=== PATIENT | male | born 1970 | race Caucasian/White ===

== ENCOUNTER → 2022-05-08 07:55 | Outpatient (BNVA) | payer OTHER, SELFPAY | PROVIDERS: PCP Internal Medicine; Visit Provider Student in an Organized Health Care Education/Training Program | DX: L40.59 Other psoriatic arthropathy (principal); L40.9 Psoriasis, unspecified; M17.0 Bilateral primary osteoarthritis of knee; Z79.899 Other long term (current) drug therapy | CPT/HCPCS: 99202 ==

== ENCOUNTER 2022-05-31 10:51 | Outpatient (REF) | payer OTHER, SELFPAY ==
--- NOTE | ~2022-05-31 | XR_ITS ---
EXAMINATION: XR KNEE, right CLINICAL INFORMATION: Pain in right knee COMPARISON: None TECHNIQUE: Patient was not able to stand. No AP view was therefore obtained. A lateral view of each knee and a sunrise view of each knee was obtained only. If clinically warranted patient to return for supine AP view of the knee. FINDINGS: There is marked joint narrowing of the patellofemoral joint with large marginal bone spurs of femur and tibia. The femoral tibial joints are likely narrowed as well. AP view would be helpful for follow-up. XR/XR knee RT 2V IMPRESSION: Marked degenerative change of the patellofemoral joints and likely femoral tibial joints.
--- NOTE | ~2022-05-31 | XR_ITS ---
EXAMINATION: XR KNEE, LEFT CLINICAL INFORMATION: Pain in left knee COMPARISON: None TECHNIQUE: Patient was not able to stand. No AP view was therefore obtained. A lateral view of each knee and a sunrise view of each knee was obtained only. If clinically warranted patient to return for supine AP view of the knee. FINDINGS: There is marked joint narrowing of the patellofemoral joint with large marginal bone spurs of femur and tibia. The femoral tibial joints are likely narrowed as well. AP view would be helpful for follow-up. XR/XR knee LT 2V IMPRESSION: Marked degenerative change of the patellofemoral joints and likely femoral tibial joints.
== END 2022-05-31 10:52 | disposition home or self-care (01) ==
LOC: HO.HOSX 10:51
PROVIDERS: Visit Provider Orthopaedic Surgery
DX: M17.0 Bilateral primary osteoarthritis of knee (principal); E11.9 Type 2 diabetes mellitus without complications; E66.01 Morbid (severe) obesity due to excess calories; Z68.42 Body mass index [BMI] 45.0-49.9, adult; L40.59 Other psoriatic arthropathy
CPT/HCPCS: 73560; 99202

== ENCOUNTER → 2022-06-05 09:40 | Outpatient (BNVA) | payer OTHER, SELFPAY | PROVIDERS: PCP Internal Medicine; Visit Provider Student in an Organized Health Care Education/Training Program | DX: L40.59 Other psoriatic arthropathy (principal); L40.9 Psoriasis, unspecified; M17.0 Bilateral primary osteoarthritis of knee; Z79.899 Other long term (current) drug therapy | CPT/HCPCS: 99212 ==

== ENCOUNTER 2023-07-03 15:49 | Outpatient (AMB) | payer OTHER, SELFPAY ==
--- NOTE | 2023-07-03 15:52 | MHC.OFFVIS ---
Intake Vital Signs 07/03/23 15:57 Height 6 ft BMI Reason not done Patient refused/unable BP 142/76 H Blood Pressure Location Rt brachial Position Sitting Pulse 111 H Pulse Source Pulse Oximeter Pulse Oximetry (%) 95 Comment pt in wheelchair, stated he weighs 315lbs Intake Visit Reasons: PSA Intake Note: Pt last seen on 06/05/22, presents today for follow up on PsA. Was on Humira and sulfasalazine on hold pending safety labs. C/o pain in hips and knees Disintegrator Feeder Required: No Accompanied by: Friend Allergies Penicillins Allergy (Unknown, Unverified 07/03/23 15:57) HIVES Medication List - Last Reconciled 07/03/23 by Angi Orellana MD adalimumab (Humira(CF) Pen) inject one - 40 mg/0.4 mL pen every 2 weeks subcut clobetasol 0.05% 1 appl topical BID 2 weeks duloxetine 20 mg PO DAILY furosemide 80 mg PO BID glipizide ER 5 mg PO DAILY metformin 500 mg PO DAILY metoclopramide HCl 10 mg PO QID omeprazole 20 mg PO DAILY quetiapine 200 mg PO DAILY tamsulosin 0.4 mg PO BEDTIME trazodone 50 mg PO BEDTIME [walker As directed] HPI HPI Comments History of Present Illness Details 52-year-old male with psoriatic arthritis returns for follow-up. Patient was last seen by me 05/2022. States that he has not been on the Humira for 1 year. States that he was admitted to the hospital multiple times and Humira was discontinued. He has not been on Humira or sulfasalazine. Continues to have significant bilateral hip and bilateral knee pain. Can barely walk, states that his right little finger is turning in, does not hurt. Having psoriasis patches behind both ears, on the umbilicus and left shoulder. Initial history: 51-year-old male with psoriasis and psoriatic arthritis diagnosed around 2019 comes for evaluation of psoriatic arthritis. Patient had been on Humira and takes sulfasalazine 4 times a day. He has not been able to get the Humira of for almost 1 year since he could not see a mesh man. He has severe pain in his hands, hips and knees. What is most bothersome is his knees. Pain is there all day, worse with walking and going up and down the stairs. He has bilateral finger stiffness, worse in the morning, takes about 1 hour to improve. He takes Tylenol which does not help. He also complains of bilateral hip pain. Patient mentions he was diagnosed with CHF he does not recall whether heart catheterization was done. He does not have any stents. [facility] Medical History Psoriasiform dermatitis Carpal tunnel syndrome Type 2 diabetes mellitus Hypertension IBS (irritable bowel syndrome) Psoriasis Psoriatic arthritis Osteoarthritis of both knees Family History Mother Osteoarthritis Social History Household Members Other:: lives alone Housing: Apartment Alcohol intake: former Patient Tobacco Use Status: Former Tobacco user Quit Date: Many years ago service: No Current occupational status: disabled Review of Systems Musc Reports deformity, Reports arthralgias and Reports joint swelling Skin/Breast Details: Psoriasis Behind both ears and on umbilicus Psych Reports abnormal sleep pattern Physical Exam Vital Signs: Last Vital Signs Pulse 111 H 07/03/23 15:57 BP 142/76 H 07/03/23 15:57 Pulse Ox 95 07/03/23 15:57 Const Other: Patient is unable to get up to the examination bed due to severe bilateral knee pain General: comfortable Nutritional Appearance: obese morbidly obese Orientation/consciousness: patient oriented x3 Limitations: ambulation with cane Resp Effort & Inspection: normal respiratory effort and able to speak in complete sentences Skin Other: Bilateral psoriatic patches behind both ears, psoriatic patch in the umbilicus, significant nail osteolysis and nail pitting both hands and feet Neuro General: patient oriented x3 Extrem Other: Contracture of right index finger, new contracture of right little finger, right wrist tenderness to palpation and pain with full extension. Bilateral knee warmth Results Reviewed Results Reviewed: RF, CCP negative from 2019 Labs 06/2023 CBC unremarkable except for mild normocytic anemia hemoglobin 12.3 Platelets 520 ESR 61 CRP 3.9 (<0.5) Hepatitis-B surface antigen/hepatitis-B core IgM/hepatitis C antibody/hepatitis A IgM all negative CMP unremarkable T spot pending HLA B27 pending IgG normal IgA 595 (70-400) IgM 87 Immunofixation pending Assessment & Plan Assessment & Plan (1) Polyarticular psoriatic arthritis: Code(s): L40.59 - Other psoriatic arthropathy Plan: 52-year-old male with psoriasis and psoriatic arthritis (diagnosed in 2019). He has osteolysis and nail pitting bilaterally. He has right index finger contracture. Patient was on Humira every 2 weeks and sulfasalazine 4 tabs daily. He had been off the Humira for almost 1 year as as he kept getting admitted to the hospital and Humira was not restarted. He is also off sulfasalazine. He has active disease with multiple tender joints as well as significantly elevated inflammatory markers. Will need to restart DMARDs. Will request new prior authorization for Humira. Will start Humira 1st, will hold off on restarting sulfasalazine as it requires frequent blood work and patient prefers not to do frequent blood work. Labs before next visit in 6 months (2) Bilateral primary osteoarthritis of knee: Code(s): M17.0 - Bilateral primary osteoarthritis of knee Plan: This seems to be his main limitation right now. He received intra-articular steroids and gel injections in the past with no relief. Bilateral knee x-rays show extensive osteoarthritic changes. He was evaluated by Orthopedic surgery and deemed not a surgical candidate for knee replacement. Today patient was agreeable for pain management evaluation. Referral placed (3) Psoriasis: Code(s): L40.9 - Psoriasis, unspecified Plan: Psoriatic patches today behind both ears and on her umbilicus, significant onycholysis and nail pitting. Will Hopefully improve once Humira gets approved Plan I spent 26 minutes reviewing patient's chart, evaluating patient, ordering diagnostic workup, counseling patient and documenting in the chart Orders: Orders Comprehensive Met. Panel 6 Months L40.50 - Arthropathic psoriasis, unspecified C Reactive Protein 6 Months L40.50 - Arthropathic psoriasis, unspecified Complete Blood Count Auto Diff 6 Months L40.50 - Arthropathic psoriasis, unspecified Erythrocyte Sedimentation Rate 6 Months L40.50 - Arthropathic psoriasis, unspecified Referrals Pain Management Referral G89.29 - Other chronic pain, M17.0 - Bilateral primary osteoarthritis of knee, M54.50 - Low back pain, unspecified Coding Level of Care Code Est Pt Level 4 (73036) Diagnoses Polyarticular psoriatic arthritis L40.59 Bilateral primary osteoarthritis of knee M17.0 Psoriasis L40.9
[2023-07-03 15:57] VITALS: BP 142/76; PULSE 111; O2SAT 95
== END 2023-07-03 16:20 | disposition home or self-care (01) ==
PROVIDERS: PCP Internal Medicine; Visit Provider Student in an Organized Health Care Education/Training Program
DX: L40.59 Other psoriatic arthropathy (principal); M17.0 Bilateral primary osteoarthritis of knee; L40.9 Psoriasis, unspecified
CPT/HCPCS: 99214

== ENCOUNTER → 2023-07-03 15:49 | Outpatient (BNVA) | payer OTHER, SELFPAY | PROVIDERS: PCP Internal Medicine; Visit Provider Student in an Organized Health Care Education/Training Program | DX: L40.59 Other psoriatic arthropathy (principal); L40.9 Psoriasis, unspecified; M17.0 Bilateral primary osteoarthritis of knee | CPT/HCPCS: 99212 ==

== ENCOUNTER 2023-07-22 09:20 | Outpatient (RCR) | payer OTHER, SELFPAY | END 2023-07-22 17:00 | disposition home or self-care (01) | LOC: HO.WCC 09:20 | PROVIDERS: PCP Internal Medicine; Visit Provider Physician Assistant | DX: Z09 Encounter for follow-up examination after completed treatment for conditions other than malignant neoplasm (principal); L30.9 Dermatitis, unspecified; I87.2 Venous insufficiency (chronic) (peripheral); E11.40 Type 2 diabetes mellitus with diabetic neuropathy, unspecified; I11.0 Hypertensive heart disease with heart failure; I50.9 Heart failure, unspecified; I25.2 Old myocardial infarction; Z87.891 Personal history of nicotine dependence; Z79.84 Long term (current) use of oral hypoglycemic drugs; Z99.3 Dependence on wheelchair; Z87.2 Personal history of diseases of the skin and subcutaneous tissue | CPT/HCPCS: 99212 ==

== ENCOUNTER 2023-07-23 10:00 | Outpatient (AMB) | payer OTHER, SELFPAY ==
--- NOTE | 2023-07-23 10:13 | A.OFFVIS_ITS ---
Intake Vital Signs 07/23/23 10:14 Height 6 ft Weight 315 lb BMI 42.7 BP 133/79 Blood Pressure Location Lt brachial Position Sitting Respiration 14 Pulse 97 Pulse Source Pulse Oximeter Pulse Oximetry (%) 97 Oxygen Delivery Method Room Air Intake Visit Reasons: Jose hip/knee OA/CONFIRMED Allergies Penicillins Allergy (Unknown, Verified 07/23/23 10:10) HIVES HPI HPI Comments History of Present Illness Details Amadou is a very pleasant 52 year old male who presents to the office today for evaluation and management of his chronic bilateral knee pain. Patient is accompanied by [facility] staff member who assists with care management. Patient requests staff member remain in the room for the visit. Patient reports he has been suffering with this pain for many years. He was evaluated by ortho in the past, had steroid injections and gel injections without relief. He was referred by rheum where he is currently being treated for psoriatic arthritis. Patient states both knees are nontender to palpation, pain is in the joints . Pain is worse with standing and walking. He is currently attending PT but it is not helping. He takes tylenol and gabapentin without relief. He also takes duloxetine daily. Pain today is rated as 8/10, constant, worse during the day. In terms of muscle damage condition is described as aching, stabbing, sharp. Pain is negatively impacting his enjoyment of life, general activity, recreational activities, relationships with people, sleep and walking. [facility] Medical History (Updated 07/23/23 @ 11:20 by Kiki Black, LUCIE, GENERAL DUTY NURSE) Psoriasiform dermatitis Carpal tunnel syndrome Type 2 diabetes mellitus Hypertension IBS (irritable bowel syndrome) Psoriasis Psoriatic arthritis Osteoarthritis of both knees Family History Mother Osteoarthritis Social History Household Members Other:: lives alone Housing: Apartment Alcohol intake: former Patient Tobacco Use Status: Former Tobacco user Quit Date: Many years ago service: No Current occupational status: disabled Review of Systems Const All systems reviewed & are unremarkable except as noted in HPI and below Physical Exam Vital Signs: Last Vital Signs Pulse 97 07/23/23 10:14 Resp 14 07/23/23 10:14 BP 133/79 07/23/23 10:14 Pulse Ox 97 07/23/23 10:14 Oxygen Delivery Method Room Air 07/23/23 10:14 BMI result Body Mass Index 42.7 General: awake, alert, oriented. Answers questions appropriately. Fully engaged in examination. Skin: warm, dry, intact HEENT: Normocephalic. Hearing intact. Cardiac: External chest normal in appearance. 3+BLE edema. Respiratory: No cough, audible wheezing or stridor. Abdomen: without gross distension. MS: No obvious swelling or deformities. Bilateral knees nontender to palpation Limited ROM bilateral knees Neurological: Oriented to person, place, time and situation. Thought process intact. utilizing wheelchair. Psychiatric: Appropriate mood and affect. Good judgment and insight. Assessment & Plan Assessment & Plan (1) Diabetes mellitus: Code(s): E11.9 - Type 2 diabetes mellitus without complications (2) Morbid obesity with body mass index (BMI) of 45.0 to 49.9 in adult: Code(s): E66.01 - Morbid (severe) obesity due to excess calories; Z68.42 - Body mass index [BMI] 45.0-49.9, adult (3) Right knee pain: Code(s): M25.561 - Pain in right knee (4) Left knee pain: Code(s): M25.562 - Pain in left knee (5) Osteoarthritis of both knees: Code(s): M17.0 - Bilateral primary osteoarthritis of knee Plan Amadou is a very pleasant 52 year old male who presented to the office today for evaluation and management of his chronic bilateral knee pain. Patient has failed conservative therapy including tylenol, prescription medications and PT. Will refer to weight management. Discussed options for treatment including diagnostic interventional testing, steroid injections, peripheral nerve stimulation with Sprint, RFA and more pe rmanent neuromodulation. Will schedule for bilateral diagnostic genicular nerve blocks with local anesthetic. If patient reports improvement in pain, function and mobility will plan to follow with bilateral genicular RFA. Patient presented with 3+ BLE edema, he was educated on dietary sodium restrictions and monitoring intake including reading food labels. Advised patient to follow up gregory with pcp/cardiology. C/W medications as prescribed. All questions and concerns have been answered and patient agrees with the plan. Follow up after injections and sooner if needed. Orders: Referrals Medical Weight Management Referral E66.01 - Morbid (severe) obesity due to excess calories, Z68.42 - Body mass index [BMI] 45.0-49.9, adult Coding Level of Care Code New Pt Level 4 (19207) Diagnoses Diabetes mellitus E11.9 Morbid obesity with body mass index (BMI) of 45.0 to 49.9 in adult E66.01; Z68.42 Right knee pain M25.561 Left knee pain M25.562 Osteoarthritis of both knees M17.0
[2023-07-23 10:14] VITALS: BP 133/79; PULSE 97; RESP 14; O2SAT 97; BMI 42.7
== END 2023-07-23 10:48 | disposition home or self-care (01) ==
PROVIDERS: PCP Internal Medicine; Referring Provider Student in an Organized Health Care Education/Training Program; Visit Provider Registered Nurse Emergency
DX: M17.0 Bilateral primary osteoarthritis of knee (principal); E11.9 Type 2 diabetes mellitus without complications; E66.01 Morbid (severe) obesity due to excess calories; Z68.42 Body mass index [BMI] 45.0-49.9, adult; M25.561 Pain in right knee; M25.562 Pain in left knee
CPT/HCPCS: 99204

== ENCOUNTER → 2023-07-23 10:00 | Outpatient (BNVA) | payer OTHER, SELFPAY | PROVIDERS: PCP Internal Medicine; Referring Provider Student in an Organized Health Care Education/Training Program; Visit Provider Registered Nurse Emergency | DX: M25.561 Pain in right knee (principal); M25.562 Pain in left knee; M17.0 Bilateral primary osteoarthritis of knee; E11.9 Type 2 diabetes mellitus without complications; E66.01 Morbid (severe) obesity due to excess calories; Z68.41 Body mass index [BMI] 40.0-44.9, adult | CPT/HCPCS: 99202 ==

== ENCOUNTER 2023-12-30 09:57 | Outpatient (AMB) | payer OTHER, SELFPAY ==
[2023-12-30 10:01] VITALS: BP 136/74; PULSE 75; O2SAT 95; BMI 40.4
--- NOTE | 2023-12-30 10:01 | MHC.OFFVIS ---
Vital Signs 12/30/23 10:01 Height 6 ft Weight 297 lb 9.985 oz BMI 40.4 BP 136/74 Blood Pressure Location Rt brachial Position Sitting Pulse 75 Pulse Source Pulse Oximeter Pulse Oximetry (%) 95 Oxygen Delivery Method Room Air Intake Visit Reasons: PsA Intake Note: Patient last seen 07/03/23 presents today for follow up and test results. States he is doing good on Humira; some pain in L hip Analytics Senior Manager Required: No Accompanied by: Other [facility] Will Allergies Penicillins Allergy (Unknown, Verified 12/30/23 10:29) HIVES Medication List - Last Reconciled 12/30/23 by Angi Orellana MD clobetasol 0.05% 1 appl topical BID 2 weeks duloxetine 20 mg PO DAILY furosemide 80 mg PO BID glipizide ER 5 mg PO DAILY Humira(CF) Pen (adalimumab) inject one - 40 mg/0.4 mL pen every 2 weeks subcut NS metformin 500 mg PO DAILY metoclopramide HCl 10 mg PO QID omeprazole 20 mg PO DAILY quetiapine 200 mg PO DAILY tamsulosin 0.4 mg PO BEDTIME trazodone 50 mg PO BEDTIME [walker As directed] HPI Comments Details: 53-year-old male with psoriatic arthritis returns for follow-up. On Humira 40 mg every other week. States that his skin has cleared up. His joints have been doing quite well except for left hip pain. He tries to move it as much as possible. States that he is only allowed 1 session of physical therapy per week which isn't enough. Has significant difficulty walking. Initial history: 51-year-old male with psoriasis and psoriatic arthritis diagnosed around 2018 comes for evaluation of psoriatic arthritis. Patient had been on Humira and takes sulfasalazine 4 times a day. He has not been able to get the Humira of for almost 1 year since he could not see a analytics analyst. He has severe pain in his hands, hips and knees. What is most bothersome is his knees. Pain is there all day, worse with walking and going up and down the stairs. He has bilateral finger stiffness, worse in the morning, takes about 1 hour to improve. He takes Tylenol which does not help. He also complains of bilateral hip pain. Patient mentions he was diagnosed with CHF he does not recall whether heart catheterization was done. He does not have any stents. [facility] Medical History Psoriasiform dermatitis Carpal tunnel syndrome Type 2 diabetes mellitus Hypertension IBS (irritable bowel syndrome) Psoriasis Psoriatic arthritis Osteoarthritis of both knees Family History Mother Osteoarthritis Social History Household Members Other:: lives alone Housing: Apartment Alcohol intake: former Patient Tobacco Use Status: Former Tobacco user Quit Date: Many years ago service: No Current occupational status: disabled Review of Systems Musc Reports deformity and Reports arthralgias Skin/Breast Denies rash Physical Exam Vital Signs: Last Vital Signs Pulse 75 12/30/23 10:01 BP 136/74 12/30/23 10:01 Pulse Ox 95 12/30/23 10:01 Oxygen Delivery Method Room Air 12/30/23 10:01 BMI result Body Mass Index 40.4 Const Other: Patient is unable to get up to the examination bed due to severe bilateral knee pain General: comfortable Nutritional Appearance: obese morbidly obese Orientation/consciousness: patient oriented x3 Limitations: ambulation with cane Resp Effort & Inspection: normal respiratory effort and able to speak in complete sentences Skin Other: Psoriasis patches have resolved Neuro General: patient oriented x3 Extrem Other: Contracture of right index finger, no active synovitis No knee warmth day Significantly limited range of motion of knees Results Reviewed Results Reviewed: RF, CCP negative from 2019 Labs 06/2023 CBC unremarkable except for mild normocytic anemia hemoglobin 12.3 Platelets 520 ESR 61 CRP 3.9 (<0.5) Hepatitis-B surface antigen/hepatitis-B core IgM/hepatitis C antibody/hepatitis A IgM all negative CMP unremarkable T spot negative HLA B27 pending IgG normal IgA 595 (70-400) IgM 87 Immunofixation pending Assessment & Plan Assessment & Plan (1) Polyarticular psoriatic arthritis: Comment: dx 2019. Osteolysis, nail pitting. Right index finger contracture Humira +SSZ Humira restarted 07/2023 effective Code(s): L40.59 - Other psoriatic arthropathy Category: Medical Plan: 53-year-old male with psoriasis and psoriatic arthritis who returns for follow-up. Doing dramatically better on Humira 40 mg every other week. Psoriasis rash has cleared up. There is no active synovitis on exam. Continues to have labs of degenerative arthritis Continue Humira 40 mg every other week. I do not think he needs to restart sulfasalazine at this point Labs before next visit in 6 months (2) Bilateral primary osteoarthritis of knee: Code(s): M17.0 - Bilateral primary osteoarthritis of knee Category: Medical Plan: This seems to be his main limitation right now. He received intra-articular steroids and gel injections in the past with no relief. Bilateral knee x-rays show extensive osteoarthritic changes. He was evaluated by Orthopedic surgery and deemed not a surgical candidate for knee replacement. (3) Psoriasis: Code(s): L40.9 - Psoriasis, unspecified Category: Medical Plan: As above Plan I spent 26 minutes reviewing patient's chart, evaluating patient, ordering diagnostic workup, counseling patient and documenting in the chart Orders: Orders Comprehensive Met. Panel 6 Months L40.59 - Other psoriatic arthropathy C Reactive Protein 6 Months L40.59 - Other psoriatic arthropathy Complete Blood Count Auto Diff 6 Months L40.59 - Other psoriatic arthropathy Erythrocyte Sedimentation Rate 6 Months L40.59 - Other psoriatic arthropathy Medications: Refilled Humira(CF) Pen (adalimumab) inject one - 40 mg/0.4 mL pen every 2 weeks subcut 2 ea 5RF NS
== END 2023-12-30 11:03 | disposition home or self-care (01) ==
LOC: HO.RHE 09:57
PROVIDERS: PCP Internal Medicine; Visit Provider Student in an Organized Health Care Education/Training Program
DX: L40.59 Other psoriatic arthropathy (principal); M17.0 Bilateral primary osteoarthritis of knee; L40.9 Psoriasis, unspecified
CPT/HCPCS: 99214

== ENCOUNTER → 2023-12-30 09:57 | Outpatient (BNVA) | payer OTHER, SELFPAY | PROVIDERS: PCP Internal Medicine; Visit Provider Student in an Organized Health Care Education/Training Program | DX: L40.59 Other psoriatic arthropathy (principal); M17.0 Bilateral primary osteoarthritis of knee; L40.9 Psoriasis, unspecified; Z79.899 Other long term (current) drug therapy | CPT/HCPCS: 99212 ==

== ENCOUNTER 2024-06-30 09:56 | Outpatient (AMB) | payer OTHER, SELFPAY ==
--- NOTE | 2024-06-30 10:25 | MHC.OFFVIS ---
Vital Signs 06/30/24 10:29 Height 6 ft Weight 336 lb 6.806 oz BMI 45.6 BP 122/80 Blood Pressure Location Lt brachial Position Sitting Pulse 91 Pulse Source Pulse Oximeter Pulse Oximetry (%) 93 Oxygen Delivery Method Room Air Intake Visit Reasons: PsA Intake Note: Patient presents for PsA. Allergies Penicillins Allergy (Unknown, Verified 06/30/24 10:32) HIVES Medication List - Last Reconciled 06/30/24 by Angi Orellana MD clobetasol 0.05% 1 appl topical BID 2 weeks duloxetine 20 mg PO DAILY furosemide 80 mg PO BID glipizide ER 5 mg PO DAILY Humira(CF) Pen (adalimumab) 40 mg (0.4 mL) subcut Q2W NS metformin 500 mg PO DAILY metoclopramide HCl 10 mg PO QID omeprazole 20 mg PO DAILY quetiapine 200 mg PO DAILY tamsulosin 0.4 mg PO BEDTIME trazodone 50 mg PO BEDTIME [walker As directed] HPI Comments Details: 53-year-old male with psoriatic arthritis returns for follow-up. On Humira 40 mg every other week. States that he continues to have psoriasis patches especially behind both knees intermittently on the dorsal aspect of his hands. States that his knuckles have been painful recently. States that his knees have been locking up especially at night. Continues to have chronic bilateral knee and hip pain due to known osteoarthritis. Initial history: 51-year-old male with psoriasis and psoriatic arthritis diagnosed around 2019 comes for evaluation of psoriatic arthritis. Patient had been on Humira and takes sulfasalazine 4 times a day. He has not been able to get the Humira of for almost 1 year since he could not see a residential coordinator. He has severe pain in his hands, hips and knees. What is most bothersome is his knees. Pain is there all day, worse with walking and going up and down the stairs. He has bilateral finger stiffness, worse in the morning, takes about 1 hour to improve. He takes Tylenol which does not help. He also complains of bilateral hip pain. Patient mentions he was diagnosed with CHF he does not recall whether heart catheterization was done. He does not have any stents. [facility], [facility] Medical History Psoriasiform dermatitis Carpal tunnel syndrome Type 2 diabetes mellitus Hypertension IBS (irritable bowel syndrome) Psoriasis Psoriatic arthritis Osteoarthritis of both knees Family History Mother Osteoarthritis Social History Household Members Other:: lives alone Housing: Apartment Alcohol intake: former Patient Tobacco Use Status: Former Tobacco user service: No Current occupational status: disabled Review of Systems Musc Reports deformity and Reports arthralgias Skin/Breast Reports rash Physical Exam Vital Signs: Last Vital Signs Pulse 91 06/30/24 10:29 BP 122/80 06/30/24 10:29 Pulse Ox 93 06/30/24 10:29 Oxygen Delivery Method Room Air 06/30/24 10:29 BMI result Body Mass Index 45.6 Const Other: Patient is unable to get up to the examination bed due to severe bilateral knee pain General: comfortable Nutritional Appearance: obese morbidly obese Orientation/consciousness: patient oriented x3 Limitations: ambulation with cane Resp Effort & Inspection: normal respiratory effort and able to speak in complete sentences Skin Other: Active psoriasis patches behind both knees Neuro General: patient oriented x3 Extrem Other: Contracture of right index finger, Right 2nd 3rd and 4th MCP tenderness Left 2nd 3rd and 4th MCP tenderness No knee warmth day Significantly limited range of motion of knees Results Reviewed Results Reviewed: RF, CCP negative from 2019 Labs 06/2023 CBC unremarkable except for mild normocytic anemia hemoglobin 12.3 Platelets 520 ESR 61 CRP 3.9 (<0.5) Hepatitis-B surface antigen/hepatitis-B core IgM/hepatitis C antibody/hepatitis A IgM all negative CMP unremarkable T spot negative HLA B27 pending IgG normal IgA 595 (70-400) IgM 87 Immunofixation pending Assessment & Plan Assessment & Plan (1) Polyarticular psoriatic arthritis: Comment: dx 2019. Osteolysis, nail pitting. Right index finger contracture Humira +SSZ Humira restarted 07/2023 Code(s): L40.59 - Other psoriatic arthropathy Category: Medical Plan: 53-year-old male with psoriasis and psoriatic arthritis who returns for follow-up. On Humira 40 mg every other week. Not doing well. Has active psoriasis patches behind both knees. Has multiple tender MCPs on exam. I will request authorization to advance his Humira to 40 mg weekly. Labs before next visit in 6 months (2) Bilateral primary osteoarthritis of knee: Code(s): M17.0 - Bilateral primary osteoarthritis of knee Category: Medical Plan: This seems to be his main limitation right now. He received intra-articular steroids and gel injections in the past with no relief. Bilateral knee x-rays show extensive osteoarthritic changes. He was evaluated by Orthopedic surgery and deemed not a surgical candidate for knee replacement. (3) Psoriasis: Code(s): L40.9 - Psoriasis, unspecified Category: Medical Plan: As above Plan I spent 26 minutes reviewing patient's chart, evaluating patient, ordering diagnostic workup, counseling patient and documenting in the chart Orders: Orders Comprehensive Met. Panel 6 Months L40.59 - Other psoriatic arthropathy Erythrocyte Sedimentation Rate 6 Months L40.59 - Other psoriatic arthropathy T Spot TB 6 Months Z11.7 - Encounter for testing for latent tuberculosis infection Complete Blood Count Auto Diff 6 Months L40.59 - Other psoriatic arthropathy C Reactive Protein 6 Months L40.59 - Other psoriatic arthropathy Hepatitis A,B,C Profile 6 Months Z11.59 - Encounter for screening for other viral diseases Coding Level of Care Code Est Pt Level 4 (92076) Complex EM visit Add On G2211 Diagnoses Polyarticular psoriatic arthritis L40.59 Bilateral primary osteoarthritis of knee M17.0 Psoriasis L40.9
[2024-06-30 10:29] VITALS: BP 122/80; PULSE 91; O2SAT 93; BMI 45.6
== END 2024-06-30 11:02 | disposition home or self-care (01) ==
PROVIDERS: PCP Internal Medicine; Visit Provider Student in an Organized Health Care Education/Training Program
DX: L40.59 Other psoriatic arthropathy (principal); M17.0 Bilateral primary osteoarthritis of knee; L40.9 Psoriasis, unspecified
CPT/HCPCS: 99214; G2211

== ENCOUNTER → 2024-06-30 09:56 | Outpatient (BNVA) | payer OTHER, SELFPAY | PROVIDERS: PCP Internal Medicine; Visit Provider Student in an Organized Health Care Education/Training Program | DX: M25.642 Stiffness of left hand, not elsewhere classified (principal); M25.641 Stiffness of right hand, not elsewhere classified; M17.0 Bilateral primary osteoarthritis of knee; L40.59 Other psoriatic arthropathy; Z79.899 Other long term (current) drug therapy | CPT/HCPCS: 99212 ==

== ENCOUNTER 2025-08-20 13:39 | Outpatient (AMB) | payer OTHER, SELFPAY ==
[2025-08-20 13:49] VITALS: BP 141/72; PULSE 94; RESP 16; O2SAT 95; BMI 31.7
--- NOTE | 2025-08-20 13:49 | MHC.OFFVIS ---
Vital Signs 08/20/25 13:49 Height 6 ft Weight 234 lb BMI 31.7 BP 141/72 H Blood Pressure Location Lt brachial Position Sitting Respiration 16 Pulse 94 Pulse Source Pulse Oximeter Pulse Oximetry (%) 95 Oxygen Delivery Method Room Air Intake Visit Reasons: BILATERAL OSTEOARTHRITIS OF KNEES Director Regulatory Agency Required: No Accompanied by: Self / Same As Patient Allergies Penicillins Allergy (Unknown, Verified 08/20/25 13:50) HIVES HPI Comments Details: History of Present Illness The patient is a 54 year old male presenting with widespread chronic pain, with a chief complaint of right shoulder pain. He also reports pain in his bilateral knees, hips, ankles, and right fingertips. The patient's right shoulder pain began without a specific injury and radiates down to his fingertips. The pain is exacerbated when he uses his right arm to assist in getting up and is severe enough to keep him awake all night, forcing him to sleep in a recliner. He has never had an x-ray or physical therapy for his shoulder. Regarding his bilateral knee pain, the patient has previously undergone physical therapy twice and was told that no further improvement could be made, as his legs are fixed in a flexed position. He received a prior injection in his knees that was ineffective, providing less than an hour of relief. He reports that a surgeon denied him knee surgery because of his inability to walk adequately. A nerve block procedure for his knees was previously considered but did not occur due to scheduling difficulties. The patient has a history of rheumatoid arthritis and has an upcoming appointment with a document clerk in September. He reports taking tramadol 50 mg and [id number] medications like Tylenol and ibuprofen, none of which provide adequate pain relief. His chronic pain and resultant insomnia have led to significant irritability and anger. For mobility, he uses an electric scooter. Pain Description - Location: The patient reports widespread pain, primarily in the right shoulder, bilateral hips, bilateral knees, and ankles. - Radiation: Pain radiates from the right shoulder down to the fingertips. - Onset: The shoulder pain started without a specific injury. - Severity and Impact: The pain is described as severe, keeps him up all night, and makes him feel like he's going crazy. - Exacerbating factors: The right shoulder pain worsens when using the arm to get up. - Functional Interference: Pain interferes with his ability to get up, sleep, and walk. Pain Management - Affect: The patient reports significant distress, stating the pain is driving me crazy. - He feels irritable, snaps at people, and feels he is about to give up due to unmanaged pain and lack of sleep. - Analgesia: The patient reports his current regimen of tramadol 50 mg and [id number] Tylenol or ibuprofen is ineffective. - A prior knee injection provided less than one hour of relief. - Activities of Daily Living: His pain is so severe it prevents him from sleeping in his bed, forcing him to use a recliner. - He relies on an electric scooter for mobility and finds it difficult to get up from a seated position. - Aberrant Drug-Related Behaviors: The patient repeatedly asks for pain medication but does not demonstrate other aberrant behaviors. - He was informed that this clinic does not prescribe pain medication. [facility] Medical History Psoriasiform dermatitis Carpal tunnel syndrome Type 2 diabetes mellitus Hypertension IBS (irritable bowel syndrome) Psoriasis Psoriatic arthritis Osteoarthritis of both knees Family History Mother Osteoarthritis Social History Household Members Other:: lives alone Housing: Apartment Alcohol intake: former Patient Tobacco Use Status: Former Tobacco user service: No Current occupational status: disabled Review of Systems Narrative Review of Systems - Musculoskeletal: Reports widespread pain affecting the right shoulder, bilateral knees, hips, and ankles. - Reports having arthritis throughout his body, specifically diagnosed as rheumatoid arthritis. - Reports his legs are stuck and cannot be fully straightened. - Neurological: Reports pain radiating from his right shoulder down to his fingertips. - Psychiatric: Reports chronic insomnia due to severe pain. - Reports feeling irritable and prone to anger when in pain and sleep-deprived. Physical Exam Exam Exam: Physical Exam - Right Shoulder: Examination reveals pain on forward flexion across the body. - Active range of motion is limited and painful with overhead elevation. - The patient is unable to reach behind his back due to pain. - Negative empty can test. Vital Signs: Last Vital Signs Pulse 94 08/20/25 13:49 Resp 16 08/20/25 13:49 BP 141/72 H 08/20/25 13:49 Pulse Ox 95 08/20/25 13:49 Oxygen Delivery Method Room Air 08/20/25 13:49 BMI result Body Mass Index 31.7 Assessment & Plan Assessment & Plan (1) Right shoulder pain: Code(s): M25.511 - Pain in right shoulder Category: Medical (2) Bilateral primary osteoarthritis of knee: Code(s): M17.0 - Bilateral primary osteoarthritis of knee Category: Medical (3) Chronic low back pain: Code(s): M54.50 - Low back pain, unspecified; G89.29 - Other chronic pain Category: Medical (4) Chronic pain syndrome: Code(s): G89.4 - Chronic pain syndrome Category: Medical Plan Plan For the patient's right shoulder pain, an x-ray will be ordered to be completed at [place]. A referral for physical therapy for the right shoulder will also be placed. The patient was informed that if physical therapy is not effective, an injection into the shoulder will be considered as the next step. Regarding the bilateral knee pain, the option to proceed with a genicular nerve block, and subsequently a radiofrequency ablation if the block is successful, was revisited. This will be considered after addressing the more acute shoulder issue. The patient was advised that this clinic provides interventional pain procedures and does not manage oral pain medications. He was instructed to discuss management of his medications, including the ineffective tramadol, with his primary care provider. The patient was encouraged to keep his upcoming rheumatology appointment to address his underlying rheumatoid arthritis. It was clarified that he would need to use his insurance-provided transportation for appointments, as he does not meet the criteria for home-based physical therapy. The patient will follow up after physical therapy to reassess and consider further interventions. Patient was informed and verbally consented to the use of an ambient scribe for clinic note documentation during this visit. Discussion Notes I discussed with the patient that we would begin by addressing his right shoulder pain, which he identified as his most bothersome issue. I recommended an X-ray of the right shoulder and a course of physical therapy. I explained that if these conservative measures do not provide adequate relief, we would then consider an injection. I clarified that our clinic specializes in interventional pain management and does not prescribe pain medications, and that he should follow up with his primary care provider for medication management. We revisited the prior plan for his bilateral knee pain, discussing genicular nerve blocks with possible radiofrequency ablation as a future option, which he was agreeable to trying. The patient will follow up after completing his shoulder physical therapy. Patient Instructions - An order for an X-ray of your right shoulder will be sent to [facility]. Please go there to have this done. - We are referring you to physical therapy for your right shoulder. - Please use your insurance transportation service (PT-1) to get to your physical therapy appointments. - If physical therapy does not help your shoulder pain, we can try an injection at your follow-up visit. - This clinic does not prescribe pain pills. You will need to talk to your primary care doctor about managing your pain medications, including the tramadol that is not working for you. - Make sure to keep your appointment with the document clerk in September for your arthritis. - After we address your shoulder, we can try a nerve block procedure to help with your knee pain. Orders: Orders XR shoulder RT min 2V 08/20/25 M25.511 - Pain in right shoulder PT Evaluation and Treatment 08/20/25 M25.511 - Pain in right shoulder Coding Level of Care Code Est Pt Level 3 (69634) Add On Problem Visit Only Diagnoses Right shoulder pain M25.511 Bilateral primary osteoarthritis of knee M17.0 Chronic low back pain M54.50; G89.29 Chronic pain syndrome G89.4
--- OUTSIDE RECORDS SUMMARY | 2025-08-20 19:08 | XMS_ITS | Data Portability ---
Author Organization [facility] [employer] [facility], Main Office Address [address] [place] [address] Care Team Providers Care Kiln Door Repairer Name Role Phone PAM BAHTT - 2ND FLOOR OTHER MEHDI JOHNSON Primary Care Provider [phone] TEN UNDERWOOD OTHER Assessment Encounter Date Assessment Date Assessment LastModified by Organization Details LastModified Time 01/07/2023 01/07/2023 Pt. seen, evaluated, discussed with Kay Woods NP. Agree with assessment and plan. [email or web address] Not available 01/07/2023 10:45:15 02/07/2023 02/07/2023 1 hr. spent coordinating and completing discharge. [email or web address] Not available 02/07/2023 14:08:59 Plan of Treatment Reminders Order Date Submit Date Provider Last Modified By Organization Details Last Modified Time Details Appointments None record ed. Lab None record ed. Referral None record ed. Procedures None record ed. Surgeries None record ed. Imaging None record ed. Medication Orders None record ed. Patient TargetsNo targets recorded. Patient InstructionsNo instructions recorded. Reason for Referral None Reported. Problems Name Problem SNOMED Code Status Onset Date Resolution Date Notes Provider Name and Address Organization Details Recorded Time Pain of bilateral knee regions 7982451327492 02 Active 2022 ARJUN BEE PA-C [address] [facility], [address], [place], [address], [facility] 3 21:17:05 Gastropares is due to type 2 diabetes mellitus 117320963 Active 2022 ARJUN BEE PA-C [address], [place], [address], [facility] 3 21:19:45 Peripheral neuropathy due to type 2 diabetes mellitus 7547185685669 Active 2022 DONTRELL TAN-C [address], [address], [place], [address], [facility] 3 21:20:15 Gastroesoph ageal reflux disease without esophagitis 105955559 Active 2022 DONTRELL TAN-C [address], [address], [place], [address], [facility] 3 21:20:23 Chronic diastolic heart failure 368081323 Active 2022 DONTRELL TAN-C [address], [address], [place], [address], [facility] 3 21:20:33 Dyslipidemi a 903192946 Active 2022 DONTRELL TAN-C [address], [address], [place], [address], [facility] 3 21:20:40 Essential hypertensio n 93721211 Active 2022 DONTRELL TAN-C [address], [address], [place], [address], [facility] 3 21:20:49 Insomnia co-occurren t and due to medical condition 1338173128198 5 Active 2022 DONTRELL TAN-C [address], [address], [place], [address], [facility] 3 21:21:00 Atrial tachycardia 876550345 Active 2022 ARJUN BEE PA-C [address], [address], [place], [address], [facility] 3 21:21:08 Chronic anemia 718968686 Active 2022 ARJUN BEE PA-C [address], [address], [place], [address], [facility] 3 21:21:16 Thrombocyto sis 8139710 Active 2022 ARJUN BEE PA-C [address], [address], [place], [address], [facility] 3 21:21:24 Chronic osteoarthri tis 58550298 Active 2022 ARJUN BEE PA-C [address], [address], [place], [address], [facility] 3 21:21:38 Morbid obesity 997934150 Active 2022 ARJUN BEE PA-C [address], [address], [place], [address], [facility] 3 21:22:49 Benign prostatic hyperplasia with outflow obstruction 471152180 Active 2022 ARJUN BEE PA-C [address], [address], [place], [address], [facility] 3 21:23:08 Irritable bowel syndrome characteriz ed by constipatio n 328687790 Active [address], [place], [address], [facility] 3 21:23:30 Obstructive sleep apnea syndrome 95652382 Active 2022 ARJUN BEE PA-C [address], [address], [place], [address], [facility] 3 21:24:57 Psoriatic arthritis 125864155 Active 2022 ARJUN BEE PA-C [address], [address], [place], [address], [facility] 3 21:25:10 Cobalamin deficiency 206977628 Active 2022 ARJUN BEE PA-C [address], [address], [place], [address], [facility] 3 21:25:25 Edema of lower extremity 915589899 Active 2022 ARJUN BEE PA-C [address], [address], [place], [address], [facility] 3 21:27:24 Cough 03494691 Active 2022 ARJUN BEE DONTRELL-C [address], [address], [place], [address], [facility] 3 21:27:30 Hypophospha temia 1179832 Active 2022 DONTRELL TAN-C [address], [address], [place], [address], [facility] 3 21:27:51 Hypokalemia 49122816 Active 2022 DONTRELL TAN-C [address], [address], [place], [address], [facility] 3 21:31:07 Hypomagnese jorge 318013607 Active 2022 DONTRELL TAN-C [address], [address], [place], [address], [facility] 3 21:32:19 Bipolar II disorder 79864647 Active 2022 ARJUN BEE DONTRELL-C [address], [address], [place], [address], [facility] 3 21:32:33 Recurrent falls 375029515 Active 2022 DONTRELL TAN-C [address], [address], [place], [address], [facility] 3 21:34:08 Functional urinary incontinenc e 706083187 Active 2022 DONTRELL TAN-C [address], [address], [place], [address], [facility] 3 21:34:30 Functional fecal incontinenc e 080434363 Active 2022 ARJUN BEE PA-C [address], [address], [place], [address], [facility] 3 21:34:40 Candidiasis of skin 58626971 Active 2022 DONTRELL TAN-C [address], [address], [place], [address], [place] [facility] 3 19:54:43 Psoriasis 4623880 Active 2022 FELISA COLMENARES NP [address] [facility], [address], [place], [address], [facility] [employer] 3 10:10:34 Abdominal pain 07246704 Active 2022 MARLEN CARLISLE [address], [address], [place], [address], [facility] 3 09:44:40 Anemia 031305146 Active 2022 FELISA COLMENARES NP [address] [facility], [address], [place], [address], [facility] [employer] [facility] 3 10:38:28 Problem Notes None recorded. Medical Equipment None Reported. Allergies Allergen ID Allergen Name Allergen Category Reaction Reaction Severity Criticality Documentation Date Start Date Code Code System Note Provider Name and Address Organization Details Recorded Time 56689 Product containin g penicilli n (product) medicatio n hives Not available Not available 11/07/2022 82501 8001 SNOMED CAN TAKE CTX ARJUN BEE PA-C [address] [facility], [address], [place], [address], [facility] 3 13:52:37 Medications Name Sig Start Date Stop Date Status Note LastModified by Organization Details LastModified Time Guaiatussin AC 10 mg-100 mg/5 mL oral liquid Take 10 mL every day by oral route at bedtime for 7 days. 023 active Not Available Not Available Not Avai lable Vitals Date Recorded Body height Body temperature Heart rate Respiratory rate Oxygen saturation Systolic And Diastolic Provider Name and Address Organization Details Last Updated DateTime 3 182.88 cm 97 [degF] 68 /min 18 /min 96 % 130/68 mm[Hg] MARLEN CARLISLE [address] [facility], [address], [place], [address], [facility] 3 09:15:04 Date Recorded Body height Body temperature Heart rate Oxygen saturation Systolic And Diastolic Provider Name and Address Organization Details Last Updated DateTime 3 182.88 cm 97.9 [degF] 70 /min 96 % 134/66 mm[Hg] Katina Olmos MD [address] [facility], [address], [place], [address], [facility] 3 07:25:14 Date Recorded Body height Heart rate Respiratory rate Body temperature Oxygen saturation Systolic And Diastolic Provider Name and Address Organization Details Last Updated DateTime 3 182.88 cm 79 /min 18 /min 97.2 [degF] 97 % 126/76 mm[Hg] FELISA COLMENARES NP [address] [facility], [address], [place], [address], [facility] 3 10:07:56 Date Recorded Body height Heart rate Respiratory rate Body temperature Oxygen saturation Systolic And Diastolic Provider Name and Address Organization Details Last Updated DateTime 3 182.88 cm 89 /min 18 /min 97.3 [degF] 97 % 134/78 mm[Hg] FELISA COLMENARES NP [address] [facility], [address], [place], [address], [facility] 3 08:25:52 Date Recorded Body height Heart rate Respiratory rate Body temperature Oxygen saturation Systolic And Diastolic Provider Name and Address Organization Details Last Updated DateTime 3 182.88 cm 80 /min 18 /min 97.2 [degF] 97 % 132/76 mm[Hg] FELISA COLMENARES NP [address] [facility], [address], [place], [address], [facility] 3 13:13:02 Social History Question Answer Notes LastModified by Organizat ion Details LastModified Time Tobacco Smoking Status Former Smoker ARJUN BEE PA-C [address] [facility], [address], [place], [address], [facility] 11/08/2022 19:20:19 Do You Have An Advance Directive? Yes Full Code; All Interventions [email or web address] Information not available 11/08/2022 What Is Your Code Status? Full Code [email or web address] Information not available 11/08/2022 Legal Guardian? No [email or web address] Information not available 11/08/2022 Do You Have A Medical Power Of Steam Fitter Helper? Yes Valid Copy In PICC, Not Invoked [email or web address] Information not available 11/08/2022 What Was The Date Of Your Most Recent Tobacco Screening? 11/07/2022 [email or web address] Information not available 11/08/2022 Do You Have An Out Of Hospital DNR? No [email or web address] Information not available 11/08/2022 Has Tobacco Cessation Counseling Been Provided? No N/A [email or web address] Information not available 11/08/2022 Sex: Unknown Functional Status Question Answer Note LastModified by Organizat ion Details LastModified Time Do you use any illicit or recreational drugs? No [email or web address] Information not available 11/08/2022 Do you or have you ever used any other forms of tobacco or nicotine? No [email or web address] Information not available 11/08/2022 What is your level of alcohol consumption? Occasional [email or web address] Information not available 11/08/2022 Mental Status None recorded. Family History Relationship Description Onset Age of this Age Resolved Age Notes LastModified by Organization Details LastModified Time Unspecified Relation Essential hypertension [email or web address] Not available 09/2022 13:54:48 Unspecified Relation Coronary arterioscler osis [email or web address] Not available 2022 13:55:02 Medical History No medical history recorded. Immunizations Vaccine Type Date Status Note Provider Nam e and Address Organization Details Recorded Time Influenza, split virus, quadrivalent, preservative 2 completed ARJUN BEE PA-C [address] [place] [address], [facility] [address], [place], [address], [facility] 11/07/2022 12:59:44 Tdap 1 completed MIKE TAN [facility], [address], [place], [address], [facility] 11/07/2022 12:59:54 pneumococcal polysaccharide PPV23 1 completed ARJUN BEE PA-C [address] [place] [address], [address], [place], [address], [facility] 11/07/2022 13:00:09 COVID-19, mRNA, LNP-S, bivalent, PF, 50 mcg/0.5 mL or 25mcg/0.25 mL dose 1 completed MIKE TAN [facility], [address], [place], [address], [facility] 11/07/2022 13:00:22 COVID-19, mRNA, LNP-S, bivalent, PF, 50 mcg/0.5 mL or 25mcg/0.25 mL dose 1 completed ARJUN BEE PA-C [address] [facility], [address], [place], [address], [facility] 11/07/2022 13:00:25 Past Encounters Encounter ID Performer Location Encounter Start Date Encounter Closed Date Diagnosis/Indication Diagnosis SNOMED-CT Code Diagnosis ICD10 Code Diagnosis IMO Codes Diagnosis Note [id number] ARJUN BEE PA-C [facility] [address] [address] 11/07/2022 12:57:54 11/09/2022 16:13:36 Muscle weakness 13769944 M62.81 PT/OT-enco urage participat ion Cough 71355361 R05.9 has meds availablel ivet exam benignno indication for CXRConside r inhaler due to hx tobacco use d/o-would start with LAMA and prn SABAFollow clinically ?MAURO cough Chronic osteoarthritis 56356615 M19.90 prn APAP-consi mundo scheduling Continue diclofenac gelPT/OTNe eds weight loss before TKAs can be considered Might benefit from physiatry consult if available Recurrent falls 46514940 2 R29.6 PT/OT Psoriatic arthritis 1563 05149 L40.50 no further data about this - listed in historical documents Peripheral neuropathy due to type 2 diabetes mellitus 4552994768 107 E11.42 fix metformin dose from 750 to 1500 mg po daily and move to prior to breakfastO n MAURO-I for renal protection Monitor sugars and adjust meds prnContinu e Cymbalta and gabapentin Thrombocytosis 5915516 D 75.839 Follow CBC - chronic per hospital records Chronic di astolic heart failure 060049668 I50.32 compensate dUpdate Mg and TSH if not recently doneFollow divalents and renal function Chronic anemia 974292910 D64.9 Follow CBC Bipolar II disorder 8322 5003 F31.81 d/c hs Wellbutrin - pt only takes once daily-ok despite typically being a twice-terry y med - pt on this way at [facility] appears to be for mood stabilizat ion +/- adjunctive management of depression with Cymbalta and Wellbutrin -SNRI + DNI could exacerbate dx atrial tachconsid er psych consult Benign pro static hyperplasia with outflow obstruction 770060249 N40.1 since resolvedf/ u prn Atrial tachycardia 26322 6006 I47.1 rate-contr olled on Toprolsee above note re: potential effect of SNRI/DNI combo Cobalamin deficiency 190 548158 E53.8 Anemia overall improved from priorConsi mundo updating B12 level if not recently done Dyslipidemia 802923744 E 78.5 fenofibrat emay need to update lipid panel if extended stay Edema of l ower extremity 205500923 R60.0 not present on examcontin ue Lasixgabap entin can cause edema - consider change to pregaba if needed Essential hypertension 77305033 I10 monitor BPs and adjust meds prn Functional fecal incontinence 037485116 R15.9 Consider toileting scheduleEn courage independen ce with ADLs Functional urinary incontinence 567464005 R39.81 Consider toileting scheduleEn courage independen ce with ADLs Gastroesop hageal reflux disease without esophagitis 047929087 K21.9 On bid PPI-consid er trial reduction to once daily Gastropare sis due to type 2 diabetes mellitus 882428922 E11.43 Reglan-mon itor for EPSsee DM2 with neuropathy above Hypokalemia 24855734 E87 .6 monitor divalents Hypomagnesemia 708838716 E83.42 update level if not recently done Hypophosphatemia 6705047 E83.39 update level if not recently done Insomnia c o-occurrent and due to medical condition 8081840911 9105 G47.01 Trazodone Irritable bowel syndrome characterized by constipation 670581832 K58.1 f/u prn Morbid obesity 497874152 E66.01 consider weight loss plan, +/- including bariatric surg consult Obstructiv e sleep apnea syndrome 36079407 G47.33 not on CPAPconsid er PSG - may be able to get this done here Pain of bi lateral knee regions 2317243884 55891 M25.561 and in Lsee OA above Candidiasis of skin 4988 3006 B37.2 ok to continue Diflucan and Seroquel despite increased risk of QT prolongati on-multipl e prior very normal QTcs and Seroquel dose is low [id number] [facility] [address] 11/13/2022 11:17:36 11/15/2022 14:13:24 Muscle weakness 95015687 M62.81 see HPIPT OT eval and treatconti nue supportive caremonito r level of need with goal of finding appropriat e housing in community Chronic osteoarthritis 91493281 M15.0 generalize d OAmonitor for sx reliefavoi d opioids as ablephysia try eval prn Recurrent falls 84562807 2 R29.6 see abovethera py to assessmoni tor fall risk Psoriatic arthritis 1563 45962 L40.50 added to PMHrheumat ology eval prn Peripheral neuropathy due to type 2 diabetes mellitus 9718352733 107 E11.42 patient maintained on gabapentin and cymbaltamo nitor for sx reliefenco urage diabetic diet Thrombocytosis 2109831 D 75.838 carrying dxmonitor pltheme eval prn Chronic di astolic heart failure 137675713 I50.32 lasix 80 mg qdmonitor respirator y and fluid status Chronic anemia 515248551 D50.8 monitor cbciron studies prn Bipolar II disorder 8322 5003 F31.81 carrying dxcontinue current medscurren tly appears stablepsyc h to eval Cobalamin deficiency 190 357351 E53.8 monitor cbcb12 level prn Dyslipidemia 615774884 E 78.2 continue current medlipid panel after patient stable at facility Essential hypertension 79042929 I10 currently wnrmonitor bp and need to titrate meds Functional fecal incontinence 421016598 R15.9 carrying dxmonitor for behaviorsG I eval prn Gastroesop hageal reflux disease without esophagitis 848168764 K21.9 omeprazole 20 mg bidmonitor ability to wean and for sx relief Gastropare sis due to type 2 diabetes mellitus 869664550 E11.43 maintained on reglanmoni tor for effect Hypokalemia 46319535 E87 .6 monitor lytes on lasix Insomnia c o-occurrent and due to medical condition 7721584179 9105 G47.01 monitor need to titrate trazadone Morbid obesity 732050684 E66.01 dietary to followenco urage diabetic diet Obstructiv e sleep apnea syndrome 33202561 G47.33 consider sleep study and Cpap [id number] FELISA COLMENARES NP [facility] [address] [place] [address] 12/19/2022 08:06:36 12/26/2022 09:56:10 Psoriasis 5488375 L40.9 umbilicus, lower abdomen, posterior ears.Uncle ar if also with fungal component on abdomen, but just completed 4 wks of diflucan.A dd topical steroid - triamcinol one 0.1% bid, use sparingly, rub in well, x 3 wks.May consider referral to derm if problemati c Muscle weakness 90010860 M62.81 With hx. of recurrent fallsPT/OT prnUnclear if will be LTC or return to community Psoriatic arthritis 1563 37150 L40.50 no further data about this - listed in historical documentsn ow with active dermatitis May need to refer to derm for mgmt Peripheral neuropathy due to type 2 diabetes mellitus 4908845161 107 E11.42 Currently on:metform in XR 1500 mg q dinnerglip izide Er 5 mg dailyDapag liflozin 5 mg dailylispr o SSI bid Plan -change diet to carb control/di abetic - 20 lb weight gain so far while here, refer to dieticiand /c SSI and bid BS - change to BS BID once a week and prnCheck CBC, CMP, A1C x 1 Continue enalapril 5 mg daily for renal protection Continue Cymbalta and gabapentin for neuropathi c pain mgmt Thrombocytosis 2946087 D 75.839 Follow CBC - chronic per hospital recordsche ck CBC x 1 Chronic di astolic heart failure 637191856 I50.32 appears compensate d at present, but noted to have weight gain and ? increasing BLE edemaCheck CMP, Mg, and TSH [id number] VS and weights weekly, s/s decompensa tionContin ue:Lasix 80 mg daily - may need to consider increaseen alapril 5 mg dailyTopro l on admit med list, but not seen on active NOV, will add ER 25 mg daily Chronic anemia 436622355 D64.9 Check CBC x 1 Bipolar II disorder 8322 5003 F31.81 Currently on:Wellbut rin SR 150 mg dailymelat onin 3 mg q HSSeroquel 150 mg q HStrazodon e 50 mg q HScymbalta 20 mg dailyMonit or mood, behaviorsP sych eval prn -SNRI + DNI could exacerbate dx atrial tach - monitor Atrial tachycardia 13864 6006 I47.1 Toprol ER 25 mg daily on admission med list, but does not appear on current med list in [facility] - will startMonit or VSsee above note re: potential effect of SNRI/DNI combo Cobalamin deficiency 190 999601 E53.8 Anemia overall improved from priorCheck B 12 x 1 Dyslipidemia 612639238 E 78.5 fenofibrat e 145 mg dailyCMP, lipid panel x 1 Edema of l ower extremity 538903388 R60.0 +2 BLE, spending most of timecontin ue Lasix 80 mg daily - may need to consider increaseCh chantal CMP x 1gabapenti n can cause edema - consider change to pregaba if neededcan consider sup hosemonito r for now Essential hypertension 45198368 I10 Running on the higher side of nl.Current ly on:lasix 80 mg daily - may need to consider dose increase, at least temporaril yenalapril 5 mg dailyPer admit note, toprol XL 25 mg daily listed as active med, but not seen on current med list in [facility] - will addCheck labs x 1Monitor VS and weights weeklyadju st meds prn Gastroesop hageal reflux disease without esophagitis 057771415 K21.9 On omeprazole 20 mg bid - will trial dose reduction, reduce to daily and monitor sx. Gastropare sis due to type 2 diabetes mellitus 753814605 E11.43 Reglan prn-monito r use, s/s EPSsee DM2 with neuropathy above Morbid obesity 373179938 E66.01 Up 20 lbsChange diet to carb controlDie tician evalConsid er increase in lasix due to increasing edemaweigh ts q wk for now Obstructiv e sleep apnea syndrome 04466228 G47.33 not on CPAPconsid er PSG - may be able to get this done here [id number] FELISA COLMENARES NP [facility] [address] 12/26/2022 10:52:15 12/28/2022 11:56:34 Cough 59821612 R05.9 mucinex 2 tabs q12 for 5 daysmonito r for worsening coughconsi mundo CXR, abx., updrafts/i nhalers for worsening sx.encoura ged to increase fluid intake and activity FELISA COLMENARES NP [facility] [address] [address] 12/31/2022 10:38:52 01/02/2023 10:56:44 Cough 28635573 R05.9 guaifenesi n w/codeine 100mg/10 mg give 10 ml at hs for 7days.albu terol neb tx every 4 hours x's 7 days while awake.Flon ase 2 prays to each nostril daily for 7daysmonit or for worsening coughconsi mundo CXR, abx. worsening sx.encoura ged to increase fluid intake and activity [id number] MARLEN CARLISLE [facility] [address] 01/07/2023 09:09:20 01/09/2023 16:54:12 Cough 77299417 R05.9 01/07 reports improvemen t.guaifene sin w/codeine 100mg/10 mg give 10 ml at hs for 7days. completeda lbuterol neb tx every 4 hours x's 7 days while awake. completedF lonase 2 prays to each nostril daily for 7days. completedm onitor for worsening resp. sx.conside r CXR, abx. worsening sx.encoura ged to increase fluid intake and activity Abdominal pain R10.11 states intermitte nt pain that started on saturday.Hx of gastropare sis+ RUQ tenderness . no reboundChe ck cbc, bmp, LFT, amylase and lipasemoni tor VS, GI sx. closely for change/wor seningCons ider KUB and or abd. US if sx. persistTo ER if acute [id number] Katina Olmos MD [address] [address] 01/11/2023 07:24:46 01/16/2023 09:48:37 Asthenia 19482227 R53.1 PT/OTwill monitor and support as needed Gastropare sis due to type 2 diabetes mellitus 144560954 E11.43 Novolog per sliding scalemetfo rmin ER 1500 mg at hsglipizid e ER 5 mg dailydapag liflozin 5 mg dailymetoc lopramide 10 mg prn bid for gastropare siswill monitor Essential hypertension 42351880 I10 metoprolol ER 25 mg dailyenala pril 5 mg dailyfuros emide 80 mg dailywill monitor Gastroesop hageal reflux disease without esophagitis 342682686 K21.9 omeprazole 20 mg dailywill monitor Chronic pain 89277073 G8 9.29 with mod to severe OA bilat knees:PT/O TAPAP 650 mg q4h prndiclofe nac gel to knees qidgabapen tin 600 mg at hsduloxeti ne 20 mg dailywill monitor Mixed anxi ety and depressive disorder 676099263 F41.8 duloxetine 20 mg dailyqueti apine 150 mg at hstrazodon e 50 mg at hswill monitor [id number] FELISA COLMENARES NP [address] [address] 01/16/2023 10:06:16 01/21/2023 12:02:01 Asthenia 89646080 R53.1 PT/OT, making gainswill monitor and support as needed Gastropare sis due to type 2 diabetes mellitus 754084036 E11.43 metoclopra mide 10 mg prn bid for gastropare siswill monitor Gastroesop hageal reflux disease without esophagitis 674600031 K21.9 continue omeprazole 20 mg dailymonit or GI sx. Abdominal pain 15251914 R10.11 unclear etiology, duration about a week.Has hx. of GERD, gastropare sis, IBS-C, hepatic steatosis, small umbilical hernia, shady....P ain limited to upper abd. area, pain vague. Stool on the softer/loo se side, no N/V, taking po.Clinica lly non toxicVSSLa bs stable except lipase 81, H/H with slow drop Plan -Check KUB x 1, consider abd. US if sx. persistAdd ed prn imodium per pt. request -- 2 mg qid prn for c/o belly gurgling R educe Glucophage ER to 500 mg daily (DM in excellent contol, ? if contributi ng to Gi issues) t discussed, lower fat choices/fo ods, weight loss may help GI complaints .Repeat labs - CBC (dropping H/H), lipaseHeme test stools x 3Continue to monitor VS, GI sx. closely for change/wor sening To ER if acute Peripheral neuropathy due to type 2 diabetes mellitus [id number] 107 E11.42 Currently on:metform in XR 1500 mg q dinner - due to GI complaints and excellent BS control, will reduce to 500 mg dailyglipi zide Er 5 mg dailyDapag liflozin 5 mg dailylispr o SSI bidCarb control dietContin ue enalapril 5 mg daily for renal protection Continue Cymbalta and gabapentin for neuropathi c pain mgmt Anemia [id number] D64.9 Slow drop while hereNormoc yticAlso with abd. painRepeat CBC, Fe panel 01/21Hemete st stools x 3Monitor VS. s/s active bleeding, abd. pain.Cont. PPI [id number] FELISA COLMENARES [facility] [address] [place] [address] 01/30/2023 08:25:06 02/07/2023 15:57:44 Abdominal pain [id number] R10.11 unclear etiology, now improved.C linically remains non toxicVSSLa bs stable/imp roved. KUB x 1 ordered, no results in chart, will request copy for review.Con tinue prn imodium per pt. request -- 2 mg qid prnReduced Glucophage ER to 500 mg daily (DM in excellent control, ? if contributi ng to Gi issues - can consider stopping in BS remain in good control.Di et reinforced - lower fat choices/fo ods, weight lossHemete st stools x 3 ordered, unsure if done, no results found. Will reorder id H/H continues to dropContin ue to monitor VS, GI sx. closely for change/wor seningTo ER if acute Peripheral neuropathy due to type 2 diabetes mellitus [id number] 107 E11.42 BS in good qzxnrcoO2U 5.6%Due to above GI complaints , metformin XR reduced to 500 mg dailyConti nue:glipiz mick ER 5 mg dailyDapag liflozin 5 mg dailyBS bid once a week and prn.stop lispro SSICarb control dietContin ue enalapril 5 mg daily for renal protection Continue Cymbalta and gabapentin for neuropathi c pain mgmt Anemia [id number] D64.9 Normocytic Fe added, 2 orders found in NOV, one for FeSO4 325 mg daily, and one for FeGluc. Will stop Fe Gluc.[place] nue Vit C 500 mg dailyHemet est stools x 3 - no results found, will re-order if H/H continues to dropMonito r VS. s/s active bleeding, abd. pain.Cont. PPI Gastropare sis due to type 2 diabetes mellitus [id number] E11.43 metoclopra mide 10 mg prn bid for gastropare siswill monitor Asthenia 71485881 R53.1 PT/OT prnwill monitor and support as needed Gastroesop hageal reflux disease without esophagitis 159143645 K21.9 continue omeprazole 20 mg dailymonit or GI sx. Acute dermatitis 3898636 6 L30.9 and pruritisle ft forearmmil dadd hydrocorti sone 1% cream bid x 7 days.Monit or [id number] FEL[facility]ES [facility] [address] 02/07/2023 13:08:12 02/12/2023 08:40:18 Abdominal pain 09854628 R10.11 unclear etiology, now improved.V SSLabs stable/imp roved.Redu dread Glucophage ER to 500 mg daily (DM in excellent control, ? if contributi ng to Gi issues - can consider stopping in BS remain in good control).D iet reinforced - lower fat choices/fo ods, weight lossContin ue to monitor VS, GI sx. closely for change/wor sening as outpt. Peripheral neuropathy due to type 2 diabetes mellitus [id number] 107 E11.42 BS in good unfmurxV8W 5.6%Due to above GI complaints , metformin XR reduced to 500 mg daily, cam consider stopping as outpt. if BS remain in good control.Co ntinue:gli pizide ER 5 mg dailyDapag liflozin 5 mg dailyCarb control dietEnalap ril 5 mg daily for renal protection Cymbalta and gabapentin for neuropathi c pain mgmtFollow BS as outpt. Anemia [id number] D64.9 Normocytic Fe and Vit C recently added, continue as outpt.Heme test stools x 3 ordered here - no results obtainedMo nitor VS. s/s active bleeding, abd. pain, labs as outpt.Cont . PPI Gastropare sis due to type 2 diabetes mellitus 691026006 E11.43 continue metoclopra mide 10 mg prn bid for gastropare sismonitor as outpt. Asthenia 63654899 R53.1 PT/OT - meeting rehab goals for d/c home with support of services.U ses w/c mostly Gastroesop hageal reflux disease without esophagitis 157605086 K21.9 continue omeprazole 20 mg dailymonit or GI sx. as outpt Acute dermatitis 3196011 6 L30.9 and pruritis, left forearm, persistsco ntinue hydrocorti sone 1% cream bid x 7 days.Add antihistam ine - will sched. claritin 10 mg daily x 7 daysMonito r as outpt. Atrial tachycardia 22785 6006 I47.1 Continue Toprol ER 25 mg dailyMonit or VS Benign pro static hyperplasia with outflow obstruction 145150082 N40.1 not on meds Bipolar II disorder 8322 5003 F31.81 Currently on:melaton in 3 mg q HSSeroquel 150 mg q HStrazodon e 50 mg q HScymbalta 20 mg daily Monitor mood, behaviors as outpt, adjust meds prn Chronic di astolic heart failure [id number] I50.32 Compensate d at this time.[place] nue:Lasix 80 mg dailyenala pril 5 mg dailyTopro l ER 25 mg dailyMonit or VS, weights, CP status as outpt. Chronic osteoarthritis 94005653 M15.0 Continue diclofenac gel and APAP prn Dyslipidemia 124304504 E 78.5 Continue fenofibrat e 145 mg daily Essential hypertension 61825465 I10 VSSCurrent ly on:lasix 80 mg dailyenala pril 5 mg dailyTopro l XL 25 mg dailyMonit or VS as outptadjus t meds prn Health Concerns Section Related Observation LastModified by Organization Detai ls LastModified Time None Recorded Concern Status LastModified by Organization Details LastModified Time None Recorded Advance Directives Directive Y: full code; all interventi ons Payers Insurance Date Sequence Insurance Name Policy Number Policy Hardin Covered Member ID Hardin Member ID Guarantor Name 12/26/2022 1 [facility] - DOS PRIOR TO 2022 - DUAL ELIGIBLE (MEDICARE REPLACEMENT/ADV ANTAGE - HMO) Amadou Rafia [id number] Amadou Morataya 02/12/2023 1 [facility] - DOS ON OR AFTER 2022 - ONE CARE (MEDICARE REPLACEMENT/ADV ANTAGE - HMO) Amadou Rafia [id number] Amadou Rafia Notes Date Note Type Note Provider Name and Address Organization Details Recorded Time 01/07/2023 text/html 52 yr old male seen today for acute rounding visit. Seen on 12/31 forconcerns of a cough and congestion, green sputum, and reports a hx. of bronchitis. PMH:significant for : DM2 with neuropathy and gastroparesis; GERD; Insomnia; Morbid obesity; Hx tobacco use Hx aspiration PNA; Hx acute hypoxic respiratory failure; Pulmonary HTN; Hx acute COVID-19 infectionOn assessment sitting in wheelchair, NAD, alert, pleasant, animated, in good spirits, self propelling in the halls. Reports improved cough and has been able to sleep at night.Now reports non radiating RUQ waxing and waning pain since Saturday, denies any diarrhea, constipation, no changes in bowel habit, no nausea or vomiting, no changes in appetite. + tenderness with palpitation. afebrile/Lungs clear.Abdomen soft non tender.HX cholecystectomy FELISA COLMENARES, SCOTTIE [address], [address], [place], [address], [facility] - [facility] 01/07/2023 10:45:34 01/11/2023 text/html This 52 year old male subacute rehab patient is seen today for routine rounding visit. Medical history is remarkable for HFpEF, DM, hypertension, hyperlipidemia, OA, GERD Patient was admitted to [facility] on 11/05/22 after [facility] hospitalization for worsening of chronic weakness. His weakness was felt to be multifactorial including OA of knees, deconditioning, chronic anemia, obesity, depression Patient had some congestion and cough last month which resolved with symptomatic treatment. He had some upper abdominal discomfort last week. Today patient is self propeling in wheelchair in hallway. He tells me that he is doing great. He continues to work with PT and OT.MOLST: full code - signed 11/05/22 Katina Olmos MD [address], [address], [place], [address], [facility] - [facility] 01/11/2023 12:30:55 01/16/2023 text/html Perez is seen today for an acute visit. Rolled up to me at the nurses station reporting upper abd. pain, very uncomfortable. Able to eat and drink, moving bowels, reporting stool on the soft/looser side. No N/V, pain with palpation, worse with palpation and when up moving around. Not as bad when in bed. Remains active, self propels in w/c daily.Meds reviewed, no recent med changes. Not on laxatives, does have prn reglan available for N/V, has not used. Also on metformin and PPI.PMH does include GERD, gastroparesis, incontinence, IBS-C, shady, hepatic steatosis, small umbilical herniaVSSrecent labs 5/2 with sl. elevated lipase, LFTs, chem stable, hgb 10.8, normocytic, dropping, was 11.6 on admit.BS very good control, low 100s, A1c 5.6%.TSH WNR. Upon exam, Toby is up in his w/c, alert, in good spirits, non toxic, NAD. PMH: Bilateral knee pain; DM2 with neuropathy and gastroparesis; GERD; HFpEF; Dyslipidemia; HTN; Insomnia; Morbid obesity; Hx atrial tachycardia; Hx tobacco use d/o; Anemia; Thrombocytosis; OA bilateral hips and knees; Stage I LLQ pressure ulcer; Hx acute prostatitis; Hx urosepsis 2020; BPH with LUTS; Non-obstructing L nephrolithiasis; Hx UTI including MRSA; IBS-C; Psoriatic arthritis; CATHIE; BLE edema; Hx R ureteric stone with hydronephrosis 2018 s/p cysto, R retrograde pyelogram, and stent placement; B12 def; Hx MRSA bacteremia; Hx hypophosphatemia; Hx hypokalemia; Hx hypomagnesemia; Hx aspiration PNA; Hx acute hypoxic respiratory failure; Pulmonary HTN; Bipolar II D/O; Hx acute COVID-19 infection 09/2021 s/p monoclonal ab infusion; Falls; DISH; Hx cholecystectomy; Hepatic steatosis; Sm fat-containing umbilical hernia; Functional urinary incontinence; Functional fecal incontinence; Severe addie intertrigo FELISA COLMENARES NP [address], [address], [place], [address], [facility] 01/16/2023 10:45:49 01/30/2023 text/html Toby is seen today for a routine, 90 day visit. He is a 52 yr. old male 52-y/o M admitted for continued care and rehab after being discharged from a prior SNF and found unable to manage at home. Unable to return to prior SNF as it was closing. While here, Amadou has been seen frequently due to resp. and GI complaints. Meds adjusted, and he is now doing better.VSSBS in 100s, checked weekly and prn. A1C 5.6%Fe and Vit C recently added - MAR reviewed and is on FeSO4 and well as Fe Gluc.TSH WNR. Upon exam, Toby is up in his w/c, alert, in good spirits, NAD.He says his belly issues and resp. issues are doing ok, no specific complaints except an itchy left forearm and rash. PMH: Bilateral knee pain; DM2 with neuropathy and gastroparesis; GERD; HFpEF; Dyslipidemia; HTN; Insomnia; Morbid obesity; Hx atrial tachycardia; Hx tobacco use d/o; Anemia; Thrombocytosis; OA bilateral hips and knees; Stage I LLQ pressure ulcer; Hx acute prostatitis; Hx urosepsis 2020; BPH with LUTS; Non-obstructing L nephrolithiasis; Hx UTI including MRSA; IBS-C; Psoriatic arthritis; CATHIE; BLE edema; Hx R ureteric stone with hydronephrosis 2018 s/p cysto, R retrograde pyelogram, and stent placement; B12 def; Hx MRSA bacteremia; Hx hypophosphatemia; Hx hypokalemia; Hx hypomagnesemia; Hx aspiration PNA; Hx acute hypoxic respiratory failure; Pulmonary HTN; Bipolar II D/O; Hx acute COVID-19 infection 09/2021 s/p monoclonal ab infusion; Falls; DISH; Hx cholecystectomy; Hepatic steatosis; Sm fat-containing umbilical hernia; Functional urinary incontinence; Functional fecal incontinence; Severe addie intertrigo FELISA COLMENARES NP [address], [address], [place], [address], [facility] 01/30/2023 10:09:47 02/07/2023 text/html ROS as noted in the HPI Amadou is seen today for discharge. He is returning to his apartment tomorrow with the support of services. He is a 52 yr. old male 52-y/o M admitted for continued care and rehab after being discharged from a prior SNF and found unable to manage at home. Unable to return to prior SNF as it was closing. While here, Amadou has been seen frequently due to resp. and GI complaints. Meds adjusted, and he is now doing better.VSSBS in 100s, checked weekly and prn. A1C 5.6% Glucophage reduced to daily.Fe and Vit C recently added for anemia.TSH WNR. Upon exam, Toby is up in his w/c, alert, in good spirits, NAD.Looking forward to going home tomorrow.He says he is feeling well, no complaints except for itchy left arm, can't stop scratching . Using hydrocortisone cream without effect. PMH: Bilateral knee pain; DM2 with neuropathy and gastroparesis; GERD; HFpEF; Dyslipidemia; HTN; Insomnia; Morbid obesity; Hx atrial tachycardia; Hx tobacco use d/o; Anemia; Thrombocytosis; OA bilateral hips and knees; Stage I LLQ pressure ulcer; Hx acute prostatitis; Hx urosepsis 2020; BPH with LUTS; Non-obstructing L nephrolithiasis; Hx UTI including MRSA; IBS-C; Psoriatic arthritis; CATHIE; BLE edema; Hx R ureteric stone with hydronephrosis 2018 s/p cysto, R retrograde pyelogram, and stent placement; B12 def; Hx MRSA bacteremia; Hx hypophosphatemia; Hx hypokalemia; Hx hypomagnesemia; Hx aspiration PNA; Hx acute hypoxic respiratory failure; Pulmonary HTN; Bipolar II D/O; Hx acute COVID-19 infection 09/2021 s/p monoclonal ab infusion; Falls; DISH; Hx cholecystectomy; Hepatic steatosis; Sm fat-containing umbilical hernia; Functional urinary incontinence; Functional fecal incontinence; Severe addie intertrigo FELISA COLMENARES NP [address], [address], [place], [address], [facility] 02/07/2023 14:09:32
--- OUTSIDE RECORDS SUMMARY | 2025-08-20 19:08 | XMS_ITS | Encounter Summary ---
Author Organization [facility] Address [address] [place] [address] Care Team Providers Care Magnetic Tape Composer Operator Name Role Phone Khoa Ortez MD Primary Care Provider [phone] Encounter Details Date Type Department Care Team (Late st Contact Info) Description 08/26/2024 Lab Requisition [facility] - Main Lab [address] [facility] [place] [address] Tye Martell MD [address] [facility] [address] [place], [place] [id number] Frequency of micturition Social History Tobacco Use Types Packs/Day Years Used Date Smoking Tobacco: Former Smokeless Tobacco: Never Alcohol Use Standard Drinks/Week Comments No 0 (1 standard drink = 0.6 oz pur e alcohol) Sex and Gender Information Value Date Recorded Sex Assigned at Not on file Legal Sex Male 11:40 AM EST Gender Identity Not on file Sexual Orientation Not on file documented as of this encounter Plan of Treatment Not on file documented as of this encounter Procedures Procedure Name Priority Date/Time Associated Diagnosis Comments BACTERIAL IDENTIFICATION AND SUSCEPTIBILITY, AEROBIC Routine 08/25/2024 8:04 AM EST Frequency of micturition documented in this encounter Results * Bacterial identification and susceptibility, aerobic (08/25/2024 8:04 AM EST) Culture, Bacterial ID and Sensitivity Multiple bacterial morphotypes present consistent with either contamination or urogenital felton. Suggest repeat specimen, if clinically indicated. 08/27/2024 9:05 AM EST [facility] Other Topography unknown / Unknown 08/25/2024 8:04 AM EST 08/26/2024 5:50 PM EST us Tye Martell MD LAB MICROBIOLOGY - G ENERAL ORDERABLES Final Result [facility] ([facility]) [facility] [address] [place] [address], [place] [phone] documented in this encounter Visit Diagnoses Diagnosis Frequency of micturition Urinary frequency documented in this encounter Care Teams Magnetic Tape Composer Operator Relationship Specialty Start Date End Date Khoa Ortez MD [address] [place] [address] PCP - General Internal Medicine 07/06/19 documented as of this encounter
--- OUTSIDE RECORDS SUMMARY | 2025-08-20 19:08 | XMS_ITS | Clinical Summary ---
Author Organization [address] [facility] Address [address] [place] [address] Phone Care Team Providers Care Business Applications Specialist Name Role Phone Khoa Ortez MD Primary Care Provider [phone] Surgical History Surgery Date Site/Laterality Comments CHOLECYSTECTOMY PROCEDURE: HISTORICAL CHOLECYSTECTOMY Medical History Medical History Date Comments Psoriatic arthritis ([facility], [facility] V28) DX:Psoriatic arthritis ([facility]) Psoriasis DX:Psoriasis Morbid obesity with BMI of 4 0.0-44.9, adult ([facility] V24, [facility] V28) DX:Morbid obesity with BMI of 40.0-44.9, adult ([facility]) HTN (hypertension) DX:HTN (hyper tension) Diabetes mellitus type II, c ontrolled ([facility] V24, [facility] V28) DX:Diabetes mellitus type I I, controlled ([facility]) History of diabetic gastroparesis DX:History of diabetic gastroparesis IBS (irritable bowel syndrome) D X:IBS (irritable bowel syndrome) Hypercholesteremia DX:Hyperchole steremia Carpal tunnel syndrome DX:Carpal tunnel syndrome Family History Medical History Relation Name Comments Other: ostearthritis Mother Relation Name Status Comments Mother Social History Tobacco Use Types Packs/Day Years Used Date Smoking Tobacco: Former Smokeless Tobacco: Never Alcohol Use Standard Drinks/Week Comments No 0 (1 standard drink = 0.6 oz pur e alcohol) Sex and Gender Information Value Date Recorded Sex Assigned at Not on file Legal Sex Male 11:40 AM EST Gender Identity Not on file Sexual Orientation Not on file Plan of Treatment Health Maintenance Due Date Last Done Comments Colorectal Cancer Screening: Colonoscopy 1968 Diabetes: Annual GFR (Glomer ular Filtration Rate) 1968 Diabetes: Annual Foot Exam 1978 Diabetes: Annual Retina Eye Exam 1978 DTaP,Tdap,and Td Vaccines (1 - Tdap) 1987 Hepatitis B Vaccines (1 of 3 - 19+ 3-dose series) 1987 Pneumococcal Vaccine: 50+ Ye ars (1 of 1 - PCV) 2018 Zoster Vaccines (1 of 2) 2018 Cholesterol Screening (Lipid Panel) 08/07/2022 HIV Screening 08/07/2022 Hepatitis C Screening 08/07/2022 Social Influencers of Health Screening 08/07/2022 Diabetes: Annual Urine Albumin-Creatinine Ratio (uACR) 08/25/2022 Diabetes: Blood Sugar Contro l Test (HGBA1C) 08/25/2022 Hypertension/CHF/CAD Annual BMP Blood Test 08/25/2022 Depression Screening 09/09/2024 COVID-19 Vaccine (1 - 2024-2 6 season) 2025 Influenza Vaccine (#1) 2025 08/05/2019 RSV Immunization Adult Patie nts (1 - 1-dose 75+ series) 2043 HIB Vaccines Aged Out No longer eligi ble based on patient's age to complete this topic HPV Vaccines Aged Out No longer eligi ble based on patient's age to complete this topic Hepatitis A Vaccines Aged Out No long er eligible based on patient's age to complete this topic IPV Vaccines Aged Out No longer eligi ble based on patient's age to complete this topic MMR Vaccines Aged Out No longer eligi ble based on patient's age to complete this topic Meningococcal ACWY Vaccine Aged Out N o longer eligible based on patient's age to complete this topic Meningococcal B Vaccine Aged Out No l onger eligible based on patient's age to complete this topic RSV Immunization Patients Un mundo 20 months Aged Out No longer eligible b ased on patient's age to complete this topic Varicella Vaccines Aged Out No longer eligible based on patient's age to complete this topic Insurance [facility] Member Subscriber Plan / Payer (Ef fective 2016-Present) Name:Kailash Henriquez Relation to Subscriber:Spouse Name:KAILASH HENRIQUEZ Date of :1968 (Home) Address: [address] [place] [id number] Payer ID:[id number] Group ID:[id number] Type:Not on file Address: [facility] [address] [phone] MEDICAID - [place] Care Teams Business Applications Specialist Relationship Specialty Start Date End Date Khoa Ortez MD [address] [place] [address] PCP - General Internal Medicine 07/06/19
== END 2025-08-20 14:20 | disposition home or self-care (01) ==
LOC: HO.PMC 13:40
PROVIDERS: PCP Internal Medicine; Visit Provider Registered Nurse Emergency
DX: M25.511 Pain in right shoulder (principal); M17.0 Bilateral primary osteoarthritis of knee; M54.50 Low back pain, unspecified; G89.29 Other chronic pain; G89.4 Chronic pain syndrome
CPT/HCPCS: 99213; G2211

== ENCOUNTER → 2025-08-20 13:39 | Outpatient (BNVA) | payer OTHER, SELFPAY | PROVIDERS: PCP Internal Medicine; Visit Provider Registered Nurse Emergency | DX: M17.0 Bilateral primary osteoarthritis of knee (principal); G89.4 Chronic pain syndrome; M25.511 Pain in right shoulder; M54.50 Low back pain, unspecified | CPT/HCPCS: 99212 ==